=== PATIENT | female | born 1975 | race Two or more races ===

== ENCOUNTER 2018-09-13 22:58 | Emergency (ER) | payer BC ==
--- NOTE | 2018-09-13 23:17 | ED Physician Documentation ---
PD HPI CHEST PAIN - Stated complaint Stated Complaint: CHEST PAIN,SOA - Chief complaint Chief Complaint: Cardiac - History obtained from History obtained from: Patient - History of Present Illness Timing - onset: How many days ago (3) Timing - onset during: Rest Timing - duration: Days (3) Timing - details: Gradual onset, Still present Quality: Pressure, Aching, Pain Location: Right chest Radiation: Neck Improved by: Rest Worsened by: Inspiration Associated symptoms: No: Shortness of air, Diaphoresis, Nausea, Vomiting, Feeling faint / dizzy, General Weakness, Palpitations, Cough Similar symptoms before: Has not had sx before Recently seen: Not recently seen - Additional information Additional information: 43-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 She was not able to get into a position which would allow her to sleep. She has now become concerned with this and states that the pain does radiate up into her neck and she can feel a mass in the neck right at the angle of the jaw. She does have enlarged cryptic tonsils and does not have a sore throat or cough or anything referred to the respiratory cycle today with the exception of the pain being worse with inspiration. She has a history of asthma she is stable on Advair and does not use a rescue inhaler. She is not feeling any wheeze at this time. She did take some tums thinking this may be reflux and this did not help. She has recently injured her left knee and this has decreased her usual activity. She normally runs every day. She has not been confined and does not take hormones and is a non-smoker. Review of Systems Constitutional: denies: Fever, Chills, Myalgias, Fatigue, Weight Loss, Sweats Eyes: denies: Decreased vision Ears: denies: Ear pain Nose: denies: Rhinorrhea / runny nose, Congestion Throat: denies: Sore throat PD PAST MEDICAL HISTORY - Past Medical History Past Medical History: Yes Respiratory: Asthma - Past Surgical History Past Surgical History: No - Present Medications Home Medications: Ambulatory Orders Medication Instructions Recorded Confirmed Fluticasone/Salmeterol [Advair Hfa 2 puffs IH Q4HR PRN 09/13/18 09/13/18 230-21 Mcg Inhaler] Amox/Clav 875/125 [Augmentin] 1 each PO Q12H #14 tablet 09/14/18 - Allergies Allergies/Adverse Reactions: Allergies Allergy/AdvReac Type Severity Reaction Status Date / Time No Known Drug Allergies Allergy Verified 09/13/18 23:06 - Social History Does the pt smoke?: No Smoking Status: Never smoker Does the pt drink ETOH?: Yes Does the pt have substance abuse?: No - Immunizations Immunizations are current?: Yes - POLST Patient has POLST: No PD ED PE NORMAL - Vitals Vital signs reviewed: Yes (hypertensive ) - General General: Alert and oriented X 3, No acute distress, Well developed/nourished - HEENT HEENT: Atraumatic, PERRL, EOMI, Ears normal, Other (There are 3+ cryptic tonsils that are symetric and without exudate. ) - Neck Neck: Supple, no meningeal sign, No bony TTP, Other (There is a tender submandibular lymph node on the right and in the anterior cervical chain. These are not present on the left. ) - Cardiac Cardiac: RRR, No murmur - Respiratory Respiratory: No respiratory distress, Clear bilaterally - Abdomen Abdomen: Normal bowel sounds, Soft, Non tender, Non distended, No organomegaly - Back Back: No CVA TTP, No spinal TTP - Derm Derm: Normal color, Warm and dry, No rash - Extremities Extremities: No deformity, No edema - Neuro Neuro: Alert and oriented X 3, retoucher 2-12 intact, No motor deficit, No sensory deficit, Normal speech Eye Opening: Spontaneous Motor: Obeys Commands Verbal: Oriented GCS Score: 15 - Psych Psych: Normal mood, Normal affect Results - Vitals Vitals: Vital Signs - 24 hr 09/13/18 09/14/18 09/14/18 23:01 00:01 01:07 Temperature 37.0 C Heart Rate 68 64 65 Respiratory 16 12 16 Rate Blood Pressure 168/88 H 135/81 H 143/67 H O2 Saturation 100 100 100 Oxygen O2 Source Room air - EKG (time done) 2303 Rate: Rate (enter#) (71) Rhythm: NSR Ischemia: Normal ST segments Compare to prior EKG: Old EKG unavailable Computer interpretation: Agree with computer - Labs Labs: Laboratory Tests 09/13/18 09/13/18 09/13/18 23:00 23:00 23:00 WBC 8.5 RBC 4.59 Hgb 12.9 Hct 38.4 MCV 83.6 MCH 28.0 MCHC 33.5 RDW 15.1 H Plt Count 267 MPV 8.3 Neut # (Auto) 5.2 Lymph # (Auto) 2.0 [place] # (Auto) 0.7 Eos # (Auto) 0.4 Baso # (Auto) 0.1 Absolute Nucleated RBC 0.00 Nucleated RBC % 0.0 D-Dimer Sodium 137 Potassium 3.7 Chloride 103 Carbon Dioxide 26 Anion Gap 8.0 BUN 16 Creatinine 0.8 Estimated GFR (MDRD) 78 L Glucose 100 Calcium 9.4 Total Bilirubin 0.5 AST 23 ALT 23 Alkaline Phosphatase 44 Troponin I < 0.04 Total Protein 7.1 Albumin 4.2 Globulin 2.9 Albumin/Globulin Ratio 1.4 Lipase 34 09/13/18 23:00 WBC RBC Hgb Hct MCV MCH MCHC RDW Plt Count MPV Neut # (Auto) Lymph # (Auto) [place] # (Auto) Eos # (Auto) Baso # (Auto) Absolute Nucleated RBC Nucleated RBC % D-Dimer 264.0 H Sodium Potassium Chloride Carbon Dioxide Anion Gap BUN Creatinine Estimated GFR (MDRD) Glucose Calcium Total Bilirubin AST ALT Alkaline Phosphatase Troponin I Total Protein Albumin Globulin Albumin/Globulin Ratio Lipase - Rads (name of study) 2 veiw chest Radiology: Prelim report reviewed (Impression: Normal two-view chest radiography.), EMP read indepedently, See rad report soft tissue neck Radiology: Prelim report reviewed (Impression: Normal sized lymph nodes in the neck. Otherwise unremarkable study.), EMP read indepedently, See rad report CT angio chest Radiology: Prelim report reviewed (Impression: Normal pulmonary CT angiogram. 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 These are benign-appearing on ultrasound evaluation. Because of the nature of her pain and the weak explanation for the right-sided pain, a CT scan of the chest with contrast was obtained after the d-dimer was positive. The study was unremarkable. There are no other causes of right-sided chest pain noted on the CT scan. The patient is administered dexamethasone 10 mg and we will place her on some Augmentin. Departure - Departure Disposition: Home, Self Care Clinical Impression: Lymphadenitis, acute Condition: Stable Instructions: ED Cervical Adenitis Abx Tx Follow-Up: [facility] [Provider Group] Prescriptions: Amox/Clav 875/125 [Augmentin] 1 each PO Q12H #14 tablet
[2018-09-13 23:22] LABS: BASOPHILS # (AUTO) 0.1 10^3/uL (0.0-0.1); BASOPHILS % (AUTO) 1.5 %; EOSINOPHILS # (AUTO) 0.4 10^3/uL (0.0-0.7); EOSINOPHILS % (AUTO) 5.2 %; HGB - HEMOGLOBIN 12.9 g/dL (12.0-16.0); LYMPHOCYTES % (AUTO) 23.8 %; MEAN CORPUSCULAR HGB CONC 33.5 g/dL (32.0-36.0); MEAN CORPUSCULAR VOLUME 83.6 fL (81.0-99.0); MEAN PLATELET VOLUME 8.3 fL (7.9-10.8); MONOCYTES # (AUTO) 0.7 10^3/uL (0.0-1.0); MONOCYTES % (AUTO) 8.7 %; NEUTROPHILS # (AUTO) 5.2 10^3/uL (1.5-6.6); NEUTROPHILS % (AUTO) 60.8 %; PLT - PLATELET COUNT 267 10^3/uL (130-450); RED BLOOD COUNT 4.59 10^6/uL (4.20-5.40); RED CELL DISTRIBUTION WIDTH 15.1 % (12.0-15.0); WHITE BLOOD COUNT 8.5 x10^3/uL (4.8-10.8)
[2018-09-13 23:35] LABS: ALBUMIN 4.2 g/dL (3.2-5.5); ALBUMIN/GLOBULIN RATIO 1.4 (1.0-2.2); BILIRUBIN,TOTAL 0.5 mg/dL (0.2-1.0); CALCIUM 9.4 mg/dL (8.5-10.3); CREATININE 0.8 mg/dL (0.4-1.0); TOTAL PROTEIN 7.1 g/dL (6.7-8.2)
--- NOTE | 2018-09-13 23:53 | XRAY Report ---
Reason: Right sided chest pain Procedure Date: 09/13/2018 Accession Number: [id number] / [id number] Procedure: XR - Chest 2 View X-Ray CPT Code: 21722 FULL RESULT: EXAM: CHEST RADIOGRAPHY EXAM DATE: 09/13/2018 11:48 PM. CLINICAL HISTORY: Right sided chest pain. COMPARISON: None. TECHNIQUE: 2 views. FINDINGS: Lungs/Pleura: No focal opacities evident. No pleural effusion. No pneumothorax. Normal volumes. Mediastinum: Heart and mediastinal contours are unremarkable. Other: None. IMPRESSION: Normal 2-view chest radiography. RAD[facility]
[2018-09-14] MEDS ORDERED: AMOX/CLAV 875 MG/125 MG TABLET PO STA (00:09)
[2018-09-14] MEDS ORDERED: DEXAMETHASONE 10 MG/ML VIAL PO STA (00:09)
--- NOTE | 2018-09-14 00:17 | Ultrasound Report ---
Reason: right neck mass Procedure Date: 09/13/2018 Accession Number: [id number] / [id number] Procedure: US - Head or Neck Soft Tissue CPT Code: FULL RESULT: EXAM: THYROID ULTRASOUND EXAM DATE: 09/13/2018 11:45 PM. CLINICAL HISTORY: Right neck mass. COMPARISON: None. TECHNIQUE: Real time sonographic imaging of the thyroid was performed by the racing mechanic. Multiple chemical sales representative static images were saved for review. FINDINGS: LYMPH NODES: The lymph nodes in the neck all fall within the range of normal by imaging criteria. The largest right submandibular lymph node measures 7 mm x 9 mm and the right cervical lymph node measures approximately 9 mm. OTHER: None. IMPRESSION: Normal sized lymph nodes in the neck. Otherwise unremarkable study. RADIA
[2018-09-14] MEDS ORDERED: CHERRY SYRUP 10 ML UDC PO ONE (00:18)
[2018-09-14] MEDS ORDERED: IOVERSOL 320 100 ML VIAL IVP ONE ×2 (00:39→01:22)
--- NOTE | 2018-09-14 01:31 | CT Report ---
Reason: right sided pleuritic chest pain Procedure Date: 09/14/2018 Accession Number: [id number] / [id number] Procedure: CT - Chest Angio (PE) CPT Code: FULL RESULT: EXAM: CT ANGIOGRAM CHEST EXAM DATE: 09/14/2018 01:13 AM. CLINICAL HISTORY: Right sided pleuritic chest pain. COMPARISON: None. TECHNIQUE: Routine helical imaging was performed through the chest in the pulmonary arterial phase. IV Contrast: 80 ML OPTIRAY 320. Reconstructions: Coronal 3-D MIP reconstructions.Sagittal and coronal. In accordance with CT protocol optimization, one or more of the following dose reduction techniques were utilized for this exam: automated exposure control, adjustment of mA and/or KV based on patient size, or use of iterative reconstructive technique. FINDINGS: Pulmonary Arteries: Diagnostic quality: Adequate through the segmental arteries. No evidence for acute or chronic pulmonary emboli. RV/LV is within normal limits. There is no interventricular septal bowing. There is no reflux of contrast material in the IVC. Lungs/Pleura: No consolidation, nodules, or edema. No effusions or pneumothorax. Mediastinum: Normal. No cardiac enlargement or adenopathy. Thoracic Aorta: Unremarkable. Upper Abdomen: Unremarkable. Other: None. IMPRESSION: Normal pulmonary CT angiogram. No pulmonary emboli. RADIA
[2018-09-14 01:51] VITALS: BP 130/76
== END 2018-09-14 01:51 | disposition home or self-care (01) ==
LOC: ED 22:58
DX: I88.9 Nonspecific lymphadenitis, unspecified (principal); R07.9 Chest pain, unspecified; I49.3 Ventricular premature depolarization
CPT/HCPCS: 36415; 71046; 71275; 76536; 80053; 83690; 84484; 85025; 85379; 93005; 99283; 99284; A9270; Q9967